=== PATIENT | female | born 1960 | race Two or more races ===

== ENCOUNTER 2022-08-11 19:23 | Inpatient (IN) | payer MEDICARE, OTHER ==
[~2022-08-11] VITALS: Ht 162.6 cm; Wt 68.0 kg
[2022-08-11] MEDS ORDERED: LEVO25TA9 PO (19:31)
[2022-08-11] MEDS ORDERED: MULT-594 PO (19:31)
[2022-08-11] MEDS ORDERED: IV NORMAL SALINE 500 ML BAG IV ONE (19:45)
[2022-08-11 20:01] LABS: HEMATOCRIT 37.8 % (31.2-41.9); MEAN CORPUSCULAR HEMOGLOBIN 29.7 uug (24.7-32.8); MEAN CORPUSCULAR VOLUME 89.2 fL (75.5-95.3); PLATELET COUNT (AUTO) 347 K/uL (179-408)
[2022-08-11 20:02] LABS: *BILIRUBIN,URIN NEGATIVE (NEGATIVE); *BLOOD, URINE NEGATIVE (NEGATIVE); *CLARITY,URINE CLEAR (CLEAR); *COLOR,URINE LIGHT YELLOW (YELLOW); *KETONES,URINE NEGATIVE (NEGATIVE); *UROBILINOGEN,URINE 0.2 E.U./dl (NORMAL); LEUKOCYTE ESTERASE ,URINE TRACE (NEGATIVE); NITRITE, URINE NEGATIVE (NEGATIVE); UGLUCOSE NEGATIVE (NEGATIVE)
[2022-08-11 20:07] LABS: CARBON DIOXIDE 30 mmol/L (21-32); CHLORIDE 103 mmol/L (98-107); CREATININE 0.7 mg/dL (0.6-1.3); GLUCOSE 102 mg/dL (74-106); POTASSIUM 4.1 mmol/L (3.5-5.1); UREA NITROGEN, BLOOD 16 mg/dL (7-18)
[2022-08-11 20:16] LABS: *AMPHETAMINE, URINE NEGATIVE (NEGATIVE); *CANNABINOID, URINE NEGATIVE (NEGATIVE); *COCCAINE, URINE NEGATIVE (NEGATIVE); *OPIATE, URINE NEGATIVE (NEGATIVE); *PHENCYCLIDINE SCREEN,URINE NEGATIVE (NEGATIVE)
[2022-08-11 20:17] LABS: ALANINE AMINOTRANSFERASE 23 U/L (14-59); ALKALINE PHOSPHATASE 59 U/L (50-136); ASPARTATE AMINOTRANSFERASE 23 U/L (15-37); BILIRUBIN,DIRECT 0.1 mg/dL (0.0-0.2); BILIRUBIN,TOTAL 0.2 mg/dL (0.2-1.0); CREATINE KINASE, TOTAL 335 U/L (26-192); ETHANOL < 3 MG/DL (0-0); TOTAL PROTEIN, SERUM 8.2 g/dL (6.4-8.2)
[2022-08-11 20:19] LABS: ACETAMINOPHEN < 2.0 ug/mL (10-30)
[2022-08-11 20:27] LABS: THYROID STIMULATING HORMONE 17.218 mIU/mL (0.358-3.740)
[2022-08-11 22:37] LABS: RBC,URINE NONE SEEN /HPF (0-3)
[2022-08-11 22:38] LABS: BACTERIA,URINE NONE SEEN /HPF (NONE SEEN); SQUAMOUS EPITHELIAL CELL,UR FEW /HPF (NONE SEEN); WBC,URINE 0-3 /HPF (0-3)
[2022-08-12] MEDS ORDERED: MAGNESIUM HYDROXIDE 30 ML LIQUID UDC PO PRN (01:00)
[2022-08-12] MEDS ORDERED: CLONAZEPAM 0.5 MG TABLET PO SCH (01:00)
[2022-08-12] MEDS ORDERED: CLONAZEPAM 0.5 MG TABLET PO PRN (01:15)
[2022-08-12 01:30] VITALS: BP 153/83
[2022-08-12 07:33] VITALS: BP 149/85
[2022-08-12] MEDS: risperiDONE 1 MG TABLET PO SCH ×2 (09:35→20:36)
[2022-08-12] MEDS: MAG HYDROX/AL HYDROX/SIMETH 30 ML LIQUID UDC PO PRN ×2 (11:16→17:47)
[2022-08-12 16:01] VITALS: BP 103/68
[2022-08-12 19:41] VITALS: BP 100/54
[2022-08-13] MEDS: PANTOPRAZOLE SODIUM 40 MG TABLET.DR PO SCH (06:31)
[2022-08-13] MEDS ORDERED: LEVOTHYROXINE SODIUM 25 MCG TABLET PO SCH (07:00)
[2022-08-13 07:55] VITALS: BP 110/62
[2022-08-13] MEDS: risperiDONE 1 MG TABLET PO SCH ×2 (08:44→21:15)
[2022-08-13 15:29] VITALS: BP 93/58
[2022-08-13 19:53] VITALS: BP 101/56
[2022-08-14] MEDS: LEVOTHYROXINE SODIUM 50 MCG TABLET PO SCH (07:00)
[2022-08-14] MEDS: PANTOPRAZOLE SODIUM 40 MG TABLET.DR PO SCH (07:00)
[2022-08-14 08:14] VITALS: BP 132/66
[2022-08-14] MEDS: risperiDONE 1 MG TABLET PO SCH ×2 (08:47→20:33)
[2022-08-14] MEDS: MULTIVITAMINS,THERAPEUTIC TABLET PO SCH (08:47)
[2022-08-14] MEDS ORDERED: LEVOTHYROXINE SODIUM 25 MCG TABLET PO SCH (09:00)
[2022-08-14] MEDS ORDERED: Medication Not On Formulary EA (Multivitamins (Multivitamin) 1 TAB) PO SCH (09:00)
[2022-08-14 15:58] VITALS: BP 109/75
[2022-08-14 19:33] VITALS: BP 105/56
[2022-08-15] MEDS: LEVOTHYROXINE SODIUM 50 MCG TABLET PO SCH (06:04)
[2022-08-15] MEDS: PANTOPRAZOLE SODIUM 40 MG TABLET.DR PO SCH (06:04)
[2022-08-15 07:35] VITALS: BP 135/84
[2022-08-15] MEDS: risperiDONE 1 MG TABLET PO SCH (08:36)
[2022-08-15] MEDS: MULTIVITAMINS,THERAPEUTIC TABLET PO SCH (08:36)
[2022-08-15 16:32] VITALS: BP 149/86
[2022-08-15 19:47] VITALS: BP 146/82
[2022-08-15] MEDS: risperiDONE 2 MG TABLET PO SCH (20:16)
[2022-08-16] MEDS: MAG HYDROX/AL HYDROX/SIMETH 30 ML LIQUID UDC PO PRN ×2 (03:46→13:10)
[2022-08-16] MEDS: LEVOTHYROXINE SODIUM 50 MCG TABLET PO SCH (06:05)
[2022-08-16] MEDS: PANTOPRAZOLE SODIUM 40 MG TABLET.DR PO SCH (06:05)
[2022-08-16 07:43] VITALS: BP 140/82
[2022-08-16] MEDS: risperiDONE 2 MG TABLET PO SCH ×2 (09:36→20:31)
[2022-08-16] MEDS: MULTIVITAMINS,THERAPEUTIC TABLET PO SCH (09:36)
[2022-08-16 16:01] VITALS: BP 133/82
[2022-08-16 20:19] VITALS: BP 106/63
[2022-08-17 07:30] VITALS: BP 110/71
[2022-08-17] MEDS: PANTOPRAZOLE SODIUM 40 MG TABLET.DR PO SCH (07:41)
[2022-08-17] MEDS: LEVOTHYROXINE SODIUM 100 MCG TABLET PO SCH (07:41)
[2022-08-17] MEDS: MULTIVITAMINS,THERAPEUTIC TABLET PO SCH (09:19)
[2022-08-17] MEDS: risperiDONE 2 MG TABLET PO SCH ×3 (09:19→21:00)
[2022-08-17] MEDS: ENSURE ENLIVE (VAN) 240 ML LIQUID PO SCH ×2 (11:15→17:15)
[2022-08-17 16:00] VITALS: BP 127/72
[2022-08-17 20:10] VITALS: BP 128/78
[2022-08-18] MEDS: LEVOTHYROXINE SODIUM 100 MCG TABLET PO SCH (06:02)
[2022-08-18] MEDS: PANTOPRAZOLE SODIUM 40 MG TABLET.DR PO SCH (06:02)
[2022-08-18 07:30] VITALS: BP 126/64
[2022-08-18] MEDS: MULTIVITAMINS,THERAPEUTIC TABLET PO SCH (09:12)
[2022-08-18] MEDS: ACETAMINOPHEN 325 MG TABLET PO PRN (09:13)
[2022-08-18] MEDS: risperiDONE 2 MG TABLET PO SCH ×3 (09:13→20:45)
[2022-08-18] MEDS: ENSURE ENLIVE (VAN) 240 ML LIQUID PO SCH ×2 (09:17→17:00)
[2022-08-18 16:00] VITALS: BP 123/67
[2022-08-18 19:43] VITALS: BP 124/69
[2022-08-19] MEDS: LEVOTHYROXINE SODIUM 100 MCG TABLET PO SCH (06:09)
[2022-08-19] MEDS: PANTOPRAZOLE SODIUM 40 MG TABLET.DR PO SCH (06:09)
[2022-08-19 07:43] VITALS: BP 132/85
[2022-08-19] MEDS: risperiDONE 2 MG TABLET PO SCH ×3 (08:01→21:15)
[2022-08-19] MEDS: MULTIVITAMINS,THERAPEUTIC TABLET PO SCH (08:01)
[2022-08-19] MEDS: ENSURE ENLIVE (VAN) 240 ML LIQUID PO SCH ×2 (08:01→16:59)
[2022-08-19 16:16] VITALS: BP 92/61
[2022-08-19 19:54] VITALS: BP 94/57
[2022-08-20] MEDS: PANTOPRAZOLE SODIUM 40 MG TABLET.DR PO SCH (06:53)
[2022-08-20] MEDS: LEVOTHYROXINE SODIUM 100 MCG TABLET PO SCH (06:53)
[2022-08-20 07:52] VITALS: BP 132/74
[2022-08-20] MEDS: ENSURE ENLIVE (VAN) 240 ML LIQUID PO SCH ×2 (08:55→17:31)
[2022-08-20] MEDS: MULTIVITAMINS,THERAPEUTIC TABLET PO SCH (08:55)
[2022-08-20] MEDS: risperiDONE 2 MG TABLET PO SCH ×2 (08:55→20:32)
[2022-08-20 16:40] VITALS: BP 119/73
[2022-08-20 19:49] VITALS: BP 118/70
[2022-08-21] MEDS: LEVOTHYROXINE SODIUM 100 MCG TABLET PO SCH (06:10)
[2022-08-21] MEDS: PANTOPRAZOLE SODIUM 40 MG TABLET.DR PO SCH (06:10)
[2022-08-21 07:38] VITALS: BP 114/62
[2022-08-21] MEDS: MULTIVITAMINS,THERAPEUTIC TABLET PO SCH (09:20)
[2022-08-21] MEDS: risperiDONE 2 MG TABLET PO SCH ×2 (09:20→20:46)
[2022-08-21] MEDS: ENSURE ENLIVE (VAN) 240 ML LIQUID PO SCH ×2 (09:21→17:32)
[2022-08-21] MEDS: BENZTROPINE MESYLATE 0.5 MG TABLET PO SCH ×2 (09:30→20:46)
[2022-08-21 16:24] VITALS: BP 106/66
[2022-08-21] MEDS: MAG HYDROX/AL HYDROX/SIMETH 30 ML LIQUID UDC PO PRN (19:16)
[2022-08-21 19:34] VITALS: BP 119/72
[2022-08-22] MEDS: MAG HYDROX/AL HYDROX/SIMETH 30 ML LIQUID UDC PO PRN (03:50)
[2022-08-22] MEDS: PANTOPRAZOLE SODIUM 40 MG TABLET.DR PO SCH (06:03)
[2022-08-22] MEDS: LEVOTHYROXINE SODIUM 100 MCG TABLET PO SCH (06:03)
[2022-08-22 07:30] VITALS: BP 137/68
[2022-08-22] MEDS: MULTIVITAMINS,THERAPEUTIC TABLET PO SCH (09:16)
[2022-08-22] MEDS: BENZTROPINE MESYLATE 0.5 MG TABLET PO SCH ×2 (09:18→16:28)
[2022-08-22] MEDS: ENSURE ENLIVE (VAN) 240 ML LIQUID PO SCH ×2 (09:20→16:29)
[2022-08-22] MEDS: OLANZAPINE 2.5 MG TABLET PO SCH ×3 (09:21→17:00)
[2022-08-22 16:00] VITALS: BP 100/62
[2022-08-22 19:41] VITALS: BP 112/60
[2022-08-23] MEDS: OLANZAPINE 2.5 MG TABLET PO SCH ×3 (07:00→17:00)
[2022-08-23] MEDS: BENZTROPINE MESYLATE 0.5 MG TABLET PO SCH ×2 (07:00→17:52)
[2022-08-23] MEDS: PANTOPRAZOLE SODIUM 40 MG TABLET.DR PO SCH (07:06)
[2022-08-23] MEDS: LEVOTHYROXINE SODIUM 100 MCG TABLET PO SCH (07:06)
[2022-08-23 07:30] VITALS: BP 122/74
[2022-08-23] MEDS: ENSURE ENLIVE (VAN) 240 ML LIQUID PO SCH ×2 (08:00→17:52)
[2022-08-23] MEDS: MULTIVITAMINS,THERAPEUTIC TABLET PO SCH (09:25)
[2022-08-23 16:00] VITALS: BP 109/65
[2022-08-23 19:47] VITALS: BP 132/79
[2022-08-23] MEDS: TEMAZEPAM 7.5 MG CAPSULE PO PRN (20:33)
[2022-08-24] MEDS: LEVOTHYROXINE SODIUM 100 MCG TABLET PO SCH (06:04)
[2022-08-24] MEDS: OLANZAPINE 2.5 MG TABLET PO SCH (06:04)
[2022-08-24] MEDS: PANTOPRAZOLE SODIUM 40 MG TABLET.DR PO SCH (06:04)
[2022-08-24] MEDS: BENZTROPINE MESYLATE 0.5 MG TABLET PO SCH ×2 (06:28→16:43)
[2022-08-24 07:30] VITALS: BP 132/68
[2022-08-24] MEDS ORDERED: OLANZAPINE 2.5 MG TABLET PO ONE (08:45)
[2022-08-24] MEDS: ENSURE ENLIVE (VAN) 240 ML LIQUID PO SCH ×2 (09:46→16:43)
[2022-08-24] MEDS: ESCITALOPRAM OXALATE 10 MG TABLET PO SCH (09:47)
[2022-08-24] MEDS: MULTIVITAMINS,THERAPEUTIC TABLET PO SCH (09:47)
[2022-08-24 16:00] VITALS: BP 133/98
[2022-08-24] MEDS: OLANZAPINE 5 MG TABLET PO SCH (16:43)
[2022-08-24] MEDS ORDERED: OLANZAPINE 2.5 MG TABLET PO SCH (17:00)
[2022-08-24 20:05] VITALS: BP 90/51
[2022-08-24] MEDS: TEMAZEPAM 7.5 MG CAPSULE PO PRN (22:58)
[2022-08-25] MEDS: LEVOTHYROXINE SODIUM 100 MCG TABLET PO SCH ×2 (06:49→07:24)
[2022-08-25] MEDS: BENZTROPINE MESYLATE 0.5 MG TABLET PO SCH ×3 (06:49→16:23)
[2022-08-25] MEDS: OLANZAPINE 5 MG TABLET PO SCH ×4 (06:49→21:11)
[2022-08-25] MEDS: PANTOPRAZOLE SODIUM 40 MG TABLET.DR PO SCH ×2 (06:49→07:24)
[2022-08-25 07:30] VITALS: BP 130/68
[2022-08-25] MEDS: MAG HYDROX/AL HYDROX/SIMETH 30 ML LIQUID UDC PO PRN (08:10)
[2022-08-25] MEDS: MULTIVITAMINS,THERAPEUTIC TABLET PO SCH (08:44)
[2022-08-25] MEDS: ESCITALOPRAM OXALATE 10 MG TABLET PO SCH (08:44)
[2022-08-25] MEDS: ENSURE ENLIVE (VAN) 240 ML LIQUID PO SCH ×2 (08:46→16:23)
[2022-08-25 16:00] VITALS: BP 145/73
[2022-08-25 22:29] VITALS: BP 104/62
[2022-08-25] MEDS: TEMAZEPAM 7.5 MG CAPSULE PO PRN (22:33)
[2022-08-26 07:36] VITALS: BP 117/64
[2022-08-26] MEDS: ESCITALOPRAM OXALATE 10 MG TABLET PO SCH (08:30)
[2022-08-26] MEDS: MULTIVITAMINS,THERAPEUTIC TABLET PO SCH (08:30)
[2022-08-26] MEDS: ENSURE ENLIVE (VAN) 240 ML LIQUID PO SCH ×2 (08:31→16:55)
[2022-08-26] MEDS: BENZTROPINE MESYLATE 0.5 MG TABLET PO SCH ×2 (08:31→16:54)
[2022-08-26] MEDS: OLANZAPINE 5 MG TABLET PO SCH ×2 (08:31→21:37)
[2022-08-26] MEDS: MAG HYDROX/AL HYDROX/SIMETH 30 ML LIQUID UDC PO PRN (08:33)
[2022-08-26 16:23] VITALS: BP 112/65
[2022-08-26 21:03] VITALS: BP 95/48
[2022-08-27] MEDS: PANTOPRAZOLE SODIUM 40 MG TABLET.DR PO SCH (07:06)
[2022-08-27] MEDS: LEVOTHYROXINE SODIUM 100 MCG TABLET PO SCH (07:06)
[2022-08-27 07:51] VITALS: BP 125/67
[2022-08-27] MEDS: ENSURE ENLIVE (VAN) 240 ML LIQUID PO SCH ×2 (08:24→17:00)
[2022-08-27] MEDS: OLANZAPINE 5 MG TABLET PO SCH ×2 (08:37→21:59)
[2022-08-27] MEDS: ESCITALOPRAM OXALATE 10 MG TABLET PO SCH (08:37)
[2022-08-27] MEDS: BENZTROPINE MESYLATE 0.5 MG TABLET PO SCH ×2 (08:37→17:46)
[2022-08-27] MEDS: MULTIVITAMINS,THERAPEUTIC TABLET PO SCH (08:37)
[2022-08-27 16:15] VITALS: BP 103/60
[2022-08-27 20:00] VITALS: BP 120/77
[2022-08-28] MEDS: LEVOTHYROXINE SODIUM 100 MCG TABLET PO SCH (07:27)
[2022-08-28] MEDS: PANTOPRAZOLE SODIUM 40 MG TABLET.DR PO SCH (07:27)
[2022-08-28 07:46] VITALS: BP 129/66
[2022-08-28] MEDS: OLANZAPINE 5 MG TABLET PO SCH ×3 (08:49→21:06)
[2022-08-28] MEDS: ESCITALOPRAM OXALATE 10 MG TABLET PO SCH (08:49)
[2022-08-28] MEDS: ENSURE ENLIVE (VAN) 240 ML LIQUID PO SCH ×2 (08:49→16:11)
[2022-08-28] MEDS: MULTIVITAMINS,THERAPEUTIC TABLET PO SCH (08:49)
[2022-08-28] MEDS: BENZTROPINE MESYLATE 0.5 MG TABLET PO SCH ×2 (08:49→16:11)
[2022-08-28 15:50] VITALS: BP 122/64
[2022-08-28 21:03] VITALS: BP 132/76
[2022-08-29] MEDS: LEVOTHYROXINE SODIUM 100 MCG TABLET PO SCH (07:22)
[2022-08-29] MEDS: PANTOPRAZOLE SODIUM 40 MG TABLET.DR PO SCH (07:22)
[2022-08-29 08:31] VITALS: BP 148/69
[2022-08-29] MEDS: MULTIVITAMINS,THERAPEUTIC TABLET PO SCH (08:39)
[2022-08-29] MEDS: BENZTROPINE MESYLATE 0.5 MG TABLET PO SCH ×2 (08:40→18:09)
[2022-08-29] MEDS: ESCITALOPRAM OXALATE 10 MG TABLET PO SCH (08:40)
[2022-08-29] MEDS: OLANZAPINE 5 MG TABLET PO SCH ×2 (08:41→22:10)
[2022-08-29] MEDS: ENSURE ENLIVE (VAN) 240 ML LIQUID PO SCH ×2 (08:42→18:09)
[2022-08-29] MEDS: ACETAMINOPHEN 325 MG TABLET PO PRN (09:12)
[2022-08-29 15:23] VITALS: BP 119/67
[2022-08-29 19:55] VITALS: BP 132/64
[2022-08-29] MEDS: MAG HYDROX/AL HYDROX/SIMETH 30 ML LIQUID UDC PO PRN (22:09)
[2022-08-30] MEDS: LEVOTHYROXINE SODIUM 100 MCG TABLET PO SCH (06:07)
[2022-08-30] MEDS: PANTOPRAZOLE SODIUM 40 MG TABLET.DR PO SCH (06:07)
[2022-08-30 07:30] VITALS: BP 137/79
[2022-08-30] MEDS: BENZTROPINE MESYLATE 0.5 MG TABLET PO SCH (08:39)
[2022-08-30] MEDS: OLANZAPINE 5 MG TABLET PO SCH ×2 (08:39→08:43)
[2022-08-30] MEDS: ESCITALOPRAM OXALATE 10 MG TABLET PO SCH (08:39)
[2022-08-30] MEDS: MULTIVITAMINS,THERAPEUTIC TABLET PO SCH (08:39)
[2022-08-30] MEDS: ENSURE ENLIVE (VAN) 240 ML LIQUID PO SCH (08:40)
== END 2022-08-30 11:30 | DRG 885 ==
LOC: EDBD 19:35 → ER 19:35 → GPS 08-12 00:45
PROVIDERS: ADMIT Psychiatry & Neurology Psychiatry; ATTEND Internal Medicine
DX: F31.32 Bipolar disorder, current episode depressed, moderate (principal); R45.851 Suicidal ideations; E03.9 Hypothyroidism, unspecified; Z79.890 Hormone replacement therapy; F41.9 Anxiety disorder, unspecified; Z87.891 Personal history of nicotine dependence; F29 Unspecified psychosis not due to a substance or known physiological condition; F39 Unspecified mood [affective] disorder; Z87.440 Personal history of urinary (tract) infections; Z20.822 Contact with and (suspected) exposure to COVID-19; F25.9 Schizoaffective disorder, unspecified
CPT/HCPCS: 36415; 84443; 84481; 84484; 85025; A4663; G0480; J7040